=== PATIENT | female | born 1945 | race Caucasian/White ===

== ENCOUNTER → 2024-04-14 16:17 | Outpatient (REF) | payer MEDICARE, SELFPAY | LOC: HWWDC 16:17 | PROVIDERS: ATTENDING PHYSICIAN Family Medicine | DX: Z12.31 Encounter for screening mammogram for malignant neoplasm of breast (principal) | CPT/HCPCS: 77063; 77067 ==

== ENCOUNTER 2024-07-02 06:27 | Day surgery (SDC) | payer MEDICARE, SELFPAY ==
[2024-07-02 07:09] LABS: Glucose - Point of Care 158 mg/dl (70-99)
== END 2024-07-02 08:38 | disposition home or self-care (01) ==
LOC: GI 06:27
PROVIDERS: ATTENDING PHYSICIAN Internal Medicine Gastroenterology
DX: Z12.11 Encounter for screening for malignant neoplasm of colon (principal); Z86.0101 Personal history of adenomatous and serrated colon polyps; K57.30 Diverticulosis of large intestine without perforation or abscess without bleeding; K64.8 Other hemorrhoids; D12.3 Benign neoplasm of transverse colon
CPT/HCPCS: 45385; 88305; 82962